=== PATIENT | male | born 1955 | race Caucasian/White ===

== ENCOUNTER 2017-05-09 08:00 | Inpatient (IN) | payer BC ==
[~2017-05-09] VITALS: Ht 167.6 cm; Wt 96.0 kg
--- NOTE | ~2017-05-09 | HP ---
PATIENT'S NAME: NOHEMI [facility] AGE: 62 Y [address] ROOM: [place] [address] LOCATION: [facility] ADMIT DATE: 05/14/2017 History & Physical DISCHARGE DATE: FAMILY PHYSICIAN: Maggie Martin MD ATTENDING PHYSICIAN: Jayden Evans DATE OF SERVICE: CHIEF COMPLAINT: Low back pain. HISTORY OF PRESENT ILLNESS: This 62-year-old male was admitted electively to the hospital today, 05/14/2017, to the care of Dr. Jayden Evans, spine surgeon. He has undergone a successful lumbar laminectomy at L5 when I see him. I have been asked to see him because he is from [place], [place], and needs a primary care hospitalist to see him while he is here. He understands. When I see him, he is pale, he does not complain of chest pain or shortness of breath, he has a little bit of nausea when he was up and about, but otherwise feels well. CURRENT MEDICATIONS: See nurse's notes. ALLERGIES: NO KNOWN DRUG ALLERGIES. PREVIOUS OPERATIONS: Status post left shoulder arthroscopy; status post fractured ankle repair in the past, site unspecified. SOCIAL HISTORY: He does not smoke at this time. He has an occasional drink of alcohol. IMMUNIZATIONS: Status unknown. FAMILY HISTORY: Negative for problems with general anesthesia or bleeding disorder. REVIEW OF SYSTEMS: Positive history of back pain; history of compressed vertebrae after trauma years ago, lumbar spine; positive history of hyperlipidemia. PHYSICAL EXAMINATION: GENERAL: Dark-haired male, alert, and oriented x3. Competent. Cognition: PAT[facility]'S NAME: [facility] AGE: 62 Y [address] ROOM: [place] [address] LOCATION: [facility] ADMIT DATE: 05/14/2017 History & Physical DISCHARGE DATE: FAMILY PHYSICIAN: Maggie Martin MD ATTENDING PHYSICIAN: Jayden Evans Normal postop status. He is an alert, pale male. HEENT: Pupils react to light. TMs not visualized. Posterior pharynx clear. NECK: Unremarkable. No thyroid enlargement. No adenopathy. LUNGS: Clear without wheeze or rub. HEART: Shows no murmur, gallop, or rub. ABDOMEN: Soft. PELVIC/RECTAL: Not done. EXTREMITIES AND SPINE: Unremarkable. Pulses full throughout. I did not check his wound on his back. NEUROLOGIC: Grossly intact. Cranial nerves intact. Mental status: Normal postop cognition. No anxiety or depression. ASSESSMENT: 1. Acute on chronic low back pain. 2. Status post laminectomy at L5 today with Dr. Evans. 3. History of compressed vertebrae at the lumbar spine in the past. 4. Status post left shoulder surgery in the past. 5. Hyperlipidemia. 6. Status post ankle surgery in the past. PLAN: Follow daily. MD JEFFREY STAFFORD/maria luisa /[id number] D: [id number] T: [id number] HISTORY & PHYSICAL
--- NOTE | ~2017-05-09 | OR ---
PATIENT'S NAME: [facility] AGE: 62 Y [address] ROOM: [place] [address] LOCATION: [facility] ADMIT DATE: 05/14/2017 OR/Procedure Report DISCHARGE DATE: FAMILY PHYSICIAN: Maggei Martin MD ATTENDING PHYSICIAN: Jayden Evans SURGEON: Jayden Evans MD POLYSOMNOGRAPH TECH: DATE OF PROCEDURE: 05/14/2017 PREOPERATIVE DIAGNOSES: 1. Lumbar degenerative disk disease. 2. Lumbar stenosis. 3. Lumbar epidural lipomatosis. 4. Lumbar radiculopathy. 5. Low back pain. POSTOPERATIVE DIAGNOSES: 1. Lumbar degenerative disk disease. 2. Lumbar stenosis. 3. Lumbar epidural lipomatosis. 4. Lumbar radiculopathy. 5. Low back pain. 6. Lumbar spondylolysis L5-S1 with low-grade spondylolisthesis. PROCEDURES PERFORMED: 1. Lumbar laminectomy at L5 with decompression of L5-S1 interspace. 2. Lumbar fusion posterior lateral technique, L5-S1. 3. Application of pedicle screw instrumentation at L5-S1. BUSINESS SERVICES ASSOCIATE: LORENZA Whitmore. ANESTHESIA: General. ESTIMATED BLOOD LOSS: 500 mL. COMPLICATIONS: None. SPECIMENS: None. INSTRUMENTATION USED: Globus CREO pedicle screw fixation. FINDINGS: Severe stenosis secondary to epidural lipomatosis. Lumbar spondylolysis at L5-S1 with low-grade spondylolisthesis and need to convert from laminectomy to include posterolateral fusion. PATIENT'S NAME: [facility] AGE: 62 Y [address] ROOM: [place] [address] LOCATION: [facility] ADMIT DATE: 05/14/2017 OR/Procedure Report DISCHARGE DATE: FAMILY PHYSICIAN: Maggie Martin MD ATTENDING PHYSICIAN: Jayden Evans OPERATIVE INDICATIONS: The patient is a 62-year-old male, who I have followed for symptomatic lumbar degenerative disk disease with stenosis secondary to epidural lipomatosis. He was offered surgery in the form of a lumbar decompression. After details, risks, benefits, and options were explained, he for freely consented to surgery. OPERATIVE NARRATIVE: After the patient was correctly identified and operative site was initiated, he was taken back to the operating room and placed in the supine position. After general anesthesia was induced, he was placed in the prone position on the Jose Alfredo frame with all bony prominences well padded and protected. The back was prepped and draped in usual sterile fashion. Time- out was taken to verify patient and procedure. He received IV antibiotics. 10 mL of 0.25% Marcaine with epinephrine was injected in line with the incision. A 10-blade was used to make a midline incision over the operative levels. Dissection was taken down through skin and subcutaneous tissue with electrocautery. The midline dissection was performed through the fascia with electrocautery and a subperiosteal dissection was performed to expose the posterior elements. A Kerrison was placed on the lamina at L5, and a lateral C-arm shot was taken to verify this at the L5-S1 level. After the spinous process was resected, the entire posterior element buckled through his lumbar spondylolysis. The facets were severely unstable, and it was decided at this point that his decompression would also require an instrumented fusion operation to prevent worsening instability and recurrence of his symptoms as well as successful alleviation of his current problems. The laminectomy was completed. The abundant epidural fat tissue was debrided and the decompression was completed across L5-S1. The pedicles were localized and the transverse processes and sacral ala were exposed in the lateral gutters. The arm was brought in. A reference frame clamp was attached to the L4 spinous process and a reference scan was performed. Under Stealth navigation, the pedicles were localized at L5 and S1. Screws were placed above vertebral bodies bilaterally and had good purchase. Confirmation of skin demonstrated good placement of pedicle screw fixation. High-speed bur was used to decorticate the transverse process of L5 and the sacral ala. The bone graft was mixed with bone marrow aspirate and bone graft isotope technician of Actifuse. This was packed and lateral gutters bridge in the decorticated bone. Rods were reduced to the pedicle screws and set caps placed and tightened to the appropriate torque. The wound was irrigated and dried. There was no bleeding. A 1 g vancomycin was divided between the deep and superficial tissue. The fascia was repaired with interrupted #1 Vicryl. 0 Vicryl in the subcutaneous tissue and then lolis in the skin. Sterile dressing was applied. The patient was awakened from the anesthesia and taken to the recovery room in stable condition. business assistant was necessary in this procedure for evacuation of blood during decompression, assistance with placement of pedicle screw fixation for PATIENT'S NAME: SHRUTHI SONG [facility] AGE: 62 Y [address] ROOM: [address] [address] LOCATION: [facility] ADMIT DATE: 05/14/2017 OR/Procedure Report DISCHARGE DATE: FAMILY PHYSICIAN: Maggie Martin MD ATTENDING PHYSICIAN: Jayden Evans fusion. MD FANNY BRIZUELA/maria luisa /[id number] d: 05/15/17 0037 t: 05/24/17 1029, OPERATIVE SUMMARY
--- NOTE | ~2017-05-09 | DS ---
PATIENT'S NAME: SHRUTHI SONG [facility] AGE: 62 Y [address] ROOM: [place] [address] LOCATION: [facility] ADMIT DATE: 05/14/2017 Discharge Summary DISCHARGE DATE: 05/16/2017 FAMILY PHYSICIAN: Maggie Martin MD ATTENDING PHYSICIAN: Jayden Evans ADMITTING DIAGNOSES: 1. Lumbar degenerative disk disease. 2. Lumbar stenosis. 3. Lumbar radiculopathy. 4. Low back pain. 5. Lumbar spondylolisthesis. DISCHARGE DIAGNOSES: 1. Lumbar degenerative disk disease. 2. Lumbar stenosis. 3. Lumbar radiculopathy. 4. Low back pain. 5. Lumbar spondylolisthesis. PROCEDURES PERFORMED THIS HOSPITALIZATION: Lumbar decompression and fusion, L5-S1. CONSULTATIONS: Internal Medicine and Physical therapy. ADMITTING HISTORY AND PHYSICAL: Briefly, this is a 62-year-old male with symptomatic lumbar spinal disease. He has failed conservative treatment. Offered surgery. After the details, risks, benefits, and options were explained, he freely consented to surgery. HOSPITAL COURSE: The patient was admitted through same-day surgery. He underwent the aforementioned surgical procedure. Because of his spondylolysis and decompression resulting in greater instability, it was elected at the time of surgery to move forward with the laminectomy and include a fusion of L5-S1. The patient did well from the surgery, was transferred from the operating room to recovery and then 3[place] in stable condition. His vital signs were stable throughout his hospitalization. He was able to void spontaneously. He was gradually mobilized with physical therapy. His pain was controlled with intravenous medications, converted over to oral medicines. He was doing well by the final day with an intact neurologic exam and stable vital signs, was discharged home in stable condition with the following instructions: Activity is light. He is to wear his brace when he is up and out of bed. He will take his medications that were prescribed, including OxyContin ER, Percocet, and Soma when needed. We will see him back in the clinic in 10 days' time for recheck. He will call the office if there is increasing pain, weakness, PATIENT'S NAME: SHRUTHI SONG [facility] AGE: 62 Y [address] ROOM: [place] [address] LOCATION: [facility] ADMIT DATE: 05/14/2017 Discharge Summary DISCHARGE DATE: 05/16/2017 FAMILY PHYSICIAN: Maggie Martin MD ATTENDING PHYSICIAN: Jayden Evans fevers, chills, bowel and bladder dysfunction or any other concerns or issues arise after discharge. All of his questions were answered. MD FANNY BRIZUELA/desl /[id number] d: 05/16/17 2148 t: 05/24/17 1032, DISCHARGE SUMMARY
[2017-05-09] MEDS ORDERED: CO Q-10 100 MG1 EACH PO (08:16)
[2017-05-09] MEDS ORDERED: [UNRECOGNIZED DRUG - OTHER] PO (08:16)
[2017-05-09] MEDS ORDERED: PURE TAURINE500 MG PO (08:16)
[2017-05-09] MEDS ORDERED: VITAMIN D1000 UNIT PO (08:17)
[2017-05-09] MEDS ORDERED: NIACIN CONTROL500 MG PO (08:17)
[2017-05-09] MEDS ORDERED: VITAMIN E400 UNI2 PO (08:17)
[2017-05-09] MEDS ORDERED: FELDENE20 MG PO (08:31)
[2017-05-09] MEDS ORDERED: CALCIUM 600 +1 EAC9 PO (10:02)
[2017-05-09] MEDS ORDERED: ASCORBIC ACID500 MG PO (10:03)
[2017-05-14 08:51] LABS: INR - (THERAPEUTIC) 0.99 (0.92-1.07); PROTIME 10.4 SECONDS (9.8-11.4)
[2017-05-14] MEDS ORDERED: NORCO 10-325 T1 EACH PO (16:36)
[2017-05-14] MEDS ORDERED: FLEXERIL10 MG PO (16:36)
--- NOTE | 2017-05-14 17:42 | NUR ---
Significant event: Pt is alert and oriented. VSS. ON room air. Has CUSTOMER DEVELOPMENT REPRESENTATIVE pump with morphine at 11/26/23. Etco2 monitor in place. Is tolerating liquids so far, no nausea. Had Lami of L5 with fusion and screw placement. Dressing to back in C/D/I. Does have brace in room for transfers and ambulation. Gale in place and is patent. Cooperative with cares.
--- NOTE | 2017-05-15 05:19 | NUR ---
Significant Event: On a Morphine CIGARETTE EXAMINER. 2 L of oxgen nasal cannula. Has a valadez catheter. When walked was nauseous, but better now. Dressing is clean, dry and intact. CSM WNL. 1-2 assist. Follow up:
[2017-05-15 05:32] LABS: BASOPHIL % 0.1 %; EOSINOPHIL % 0.2 %; HEMATOCRIT 32.9 % (37.0-53.0); HEMOGLOBIN 11.3 g/dL (11.0-16.0); IMMATURE GRANULOCYTE # 0.1 K/uL (0.0-0.3); IMMATURE GRANULOCYTE % 0.4 %; LYMPHOCYTE # 1.5 K/uL (0.8-4.0); LYMPHOCYTE % 11.9 %; MCH 33.2 pg (27.0-34.0); MCHC 34.3 gm/dL (32.0-36.5); MCV 96.8 fl (83.0-98.0); MONOCYTE # 1.2 K/uL (0.0-1.0); MONOCYTE % 9.7 %; MPV 10.4 fl (9.4-12.4); NEUTROPHIL # (ANC) 9.9 K/uL (1.4-9.0); NEUTROPHIL % 77.7 %; NRBC % 0 /100WBC (0-0.00); PLATELET COUNT 154 K/uL (150-450); RDW-CV 12.5 % (11.9-14.6); WBC 12.7 K/uL (4.0-11.0)
--- NOTE | 2017-05-15 17:23 | NUR ---
Significant Event: Ambulates with SBA and walker. Dressing C/D/I. LSO when out of bed. Percocet last at 1700, Oxycontin 10mg and Some 350mg last at 1445. No void since valadez out at 1100. Morphine BUFFING MACHINE OPERATOR SEMIAUTOMATIC stopped at 1130. Titrated to room air. Plans to dismiss to home tomorrow. Follow up:
--- NOTE | 2017-05-16 04:21 | NUR ---
Significant Event: Alert/oriented x3. Plans to go home today. Pt said this was a better night than last night. 1 void - 450 mls. Ambulates 1 assist, steady gait. CSM WNL. VSS. Dressing C/D/I. Scheduled Oxycontin at HS; Percocet 1 tablet at 0226. Has slept most of night, prefers to wear ear plugs while sleeping. Follow up:
--- NOTE | 2017-05-16 10:30 | NUR ---
RECEIVED REFERRAL THAT PATIENT CAN BE DISCHARGE HOME TODAY. HE WILL NEED FRONT WHEELED WALKER. MEET WITH PATIENT HE WOULD LIKE TO RENT A WALKER. I NOTIFIED [facility] AND THEY WILL RENT A WALKER TO PATIENT IT WILL COST $20.00 A MONTH. HE WILL PLAN ON RETURNING IT TO [facility] IN [place] ONCE HE IS DONE USING IT. SPOKE TO FERNANDO AT [facility] SHE INFORMS ME THAT THEY DO NOT DELIVER EQUIPEMENT AND SHE WILL HAVE IT READY FOR PATIENT TO VICE PRESIDENT PROCESS. I FAXED INFO TO HER AND SPOKE TO SHRUTHI HE REPORTS THAT THEY WILL VICE PRESIDENT PROCESS THE WALKER AT [facility] IN [place] ON THEIR WAY HOME.
[2017-05-16] MEDS ORDERED: OXYCONTIN EXTEN10 MG PO (12:17)
[2017-05-16] MEDS ORDERED: SOMA350 MG PO (12:18)
[2017-05-16] MEDS ORDERED: PERCOCET 5-3251 EACH PO (12:19)
== END 2017-05-16 13:00 | disposition disaster alternative care site (69) | DRG 460 ==
LOC: G3N 05-14 07:16
PROVIDERS: ADMIT Orthopaedic Surgery Orthopaedic Surgery of the Spine
PROC: 0SG3071 Fusion of Lumbosacral Joint with Autologous Tissue Substitute, Posterior Approach, Posterior Column, Open Approach (ICD-10-PCS; principal; 2017-05-14)
PROC: 07DS3ZZ Extraction of Vertebral Bone Marrow, Percutaneous Approach (ICD-10-PCS; principal; 2017-05-14)
PROC: 8E0WXBF Computer Assisted Procedure of Trunk Region, With Fluoroscopy (ICD-10-PCS; principal; 2017-05-14)
PROC: 01NB0ZZ Release Lumbar Nerve, Open Approach (ICD-10-PCS; principal; 2017-05-14)
DX: M51.16 Intervertebral disc disorders with radiculopathy, lumbar region (principal); E78.5 Hyperlipidemia, unspecified; M48.06 Spinal stenosis, lumbar region; M47.26 Other spondylosis with radiculopathy, lumbar region; M43.17 Spondylolisthesis, lumbosacral region; E88.2 Lipomatosis, not elsewhere classified
CPT/HCPCS: C1713; J0131; J0690; J1100; J1885; J2001; J2250; J2270; J2405; J3370; J3480; J7120